=== PATIENT | female | born 1935 | race Caucasian/White ===

== ENCOUNTER 2024-01-08 22:50 | Inpatient (IN) | payer MEDICARE, OTHER, SELFPAY ==
[2024-01-08 20:15] VITALS: BP 217/96; BMI 29.7
[2024-01-08 20:19] VITALS: BP 217/96
--- NOTE | 2024-01-08 20:23 | ED.MUSCINJ ---
HPI-Injury
General
Chief Complaint: Fall
Source: patient
Exam Limitations: none
Time Seen by Provider: 01/08/24 20:23
Nursing documentation reviewed up to this point in time: agreed with
History of Present Illness-Injury
Initial Injury comments:
88-year-old female w h/o HTN, HLD, who lives alone at home states she has a bad right knee and goes to a chiropractor for her right hip chronic pain states she was walking in her hallway about 2 hours ago when her right knee gave out she fell
injuring her right hip. She crawled to her iPad and FaceTime to her daughter who called EMS. She denies hitting her head or any other injury. Not anticoagulated. Pain right hip and right knee.
Past History
Past History
ED Past Surgical History: Gynecological, Tonsilectomy and Other (hernia repair)
Social History
Tobacco: Non-smoker
Alcohol: None
Living: alone
Review of Systems
Review of Systems
Allergies reviewed?: Yes
All Other Systems: ROS reviewed and negative except as documented in HPI and ROS
Constitutional: Denies fever
Respiratory: Denies trouble breathing
Cardiac: Denies chest pain, palpitations or syncope
ABD/GI: Denies abdominal pain, nausea or vomiting
: Reports no symptoms
Musculoskeletal: Reports other (pain right hip and right knee pain); Denies neck pain or back pain
Skin: Reports no symptoms
Neurological: Reports no symptoms
Phy Exam
Physical Exam
Physical Exam:
GENERAL: No acute distress. A&Ox3.
CONSTITUTIONAL: Afebrile.
EYES: PERRL, conjunctivae normal
Neck: Supple
ENMT: moist mucus membranes, Pharynx nl
RESPIRATORY: Regular respirations, nonlabored, lungs clear.
CARDIOVASCULAR: Regular rate and rhythm, no murmurs, no rubs.
GI: Soft, nontender, normal BS
MUSCULOSKELETAL: Pt with pain right hip, right leg shortened and knee externally rotated. Well perfused. No edema
SKIN: Warm, dry, pink
PSYCH: Normal mood and affect. Well kept, interactive and appropriate
NEUROLOGIC: Awake, alert and oriented. No focal neurological deficits
Injury Course
Orders/Labs/Results
Orders:
Orders
01/08/24 20:23
Hip, Right 2-3 Views [CR Hip - RT w/wo Pel 2-3 Vw*] Urgent
Comment:
Reason For Exam: Pain after fall
Include a pelvis x-ray?: Yes
01/08/24 20:29
HYDROmorphone [Dilaudid] 0.5 mg IV NOW STA
01/08/24 20:31
Complete Blood Count/With Diff Urgent
Comprehensive Metabolic Panel Urgent
Protime/PTT Urgent
01/08/24 20:34
CR Knee- Right 4 Or More View* Urgent
Comment:
Reason For Exam: knee pain
01/08/24 21:25
HYDROmorphone [Dilaudid] 0.5 mg .ROUTE .STK-MED ONE
01/08/24 21:26
HYDROmorphone [Dilaudid] 0.5 mg IV NOW STA
01/08/24 22:31
Admit/Transfer Patient As Directed
Co-Sign Provider:
Level of Care: Inpatient admission
Assign to:: Medical/Surgical
Physician / Group: hospitalist
Diagnosis: hip fracture
Reason for Hospitalization: ambulatory dysfunction
Expected length of stay greater than two midnights?: Yes
ELOS- Estimated Length of Stay in days: 2
I certify the patient meets the requirements for IP care: Yes
PRN Pain Medication Management As Directed
May give lesser potent ordered pain med per pt: Yes
preference::
Protocol:: Medication orders for pain may be administered in a
manner that supports deferring to patient preference
when the pt is:
- Requesting an ordered lesser potent pain medication.
Least to most potent pain medications are defined
as: acetaminophen < NSAID < tramadol < opioids
(morphine, oxycodone, hydromorphone).
- Requesting a lesser dose of the same medication IF
ORDERED.
- Requesting a less intrusive route of administration
if both routes are prescribed by the provider (PO <
IV).
01/08/24 22:32
Code Status As Directed
Resuscitation Status: Do not resuscitate
Reached after discussion with pt or family/Healthcare POA: Yes
DNR Bracelet Application ONCE
01/08/24 23:52
Amlodipine [Norvasc] 2.5 mg PO NOW STA
Docusate Sodium [Colace] 100 mg PO BID
HYDROmorphone [Dilaudid] 0.5 mg IV Q3HPRN PRN
Magnesium Hydroxide [Milk of Magnesia] 30 ml PO DAILYPRN PRN
Saline Mist 20 drops NASAL DAILYPRN PRN
Sennosides [Senokot] 17.2 mg PO BID
Tamsulosin [Flomax] 0.4 mg PO DAILYPRN PRN
naphazo HCl-hpm-ps 80-Zn sulf [Clear Eyes Complete] 1 drop BOTH EYES QIDPRN PRN
01/08/24 23:52
ORTHOPEDIC CONSULT Routine
Consulting Provider: Javier Bose
Was physician already notified: Yes
Reason for consult: right femoral neck hip fracture
Activity As Directed
Activity Level: With Assistance
Bladder Scan As Directed
Follow Bladder Retention/Intermittent Cath Algorithm?: Yes
PRN if no void in __ hours: 6
Comment: if not voiding 6 hrs upon arrival to floor, bladder scan & follow algorithm
Intake/ Output As Directed
Frequency: Per unit guidelines
Straight Cath As Directed
Frequency: Per Retention Algorithm
Additional Instructions: straight cath as needed per acute urinary retention algorithm for 24 hrs
Additional Instructions: for bladder scan greater than 400 mL
Vital Signs As Directed
Frequency: Per unit guidelines
DX Deep Vein Thrombosis Video Routine
01/09/24 00:00
Acetaminophen [Tylenol] 650 mg PO Q4HWA
01/09/24 08:00
Amlodipine [Norvasc] 5 mg PO DAILY
01/09/24 18:00
Enoxaparin Sodium [Lovenox] 40 mg SC QPM
Abnormal Lab Results
01/08/24
20:31
WBC 12.4 H 10^3/uL
(4.8-10.8)
MPV 10.7 H fL
(7.4-10.4)
Abs Immat Gran (auto) 0.1 H 10^3/uL
(0-0.05)
Absolute Neuts (auto) 10.6 H 10^3/uL
(1.4-6.5)
Absolute Lymphs (auto) 1.1 L 10^3/uL
(1.2-3.4)
Immature Gran % 0.6 H %
(0-0.5)
Neutrophils % 85.7 H %
(42.2-75.2)
Lymphocytes % 8.5 L %
(20.5-51.1)
BUN 23 H mg/dl
(7-17)
Glucose 126 H mg/dl
(70-99)
01/08/24 20:31
01/08/24 20:31
MDM/Problems Addressed
Differential Diagnosis Includes:
Fracture right hip
MDM/Problems Addressed:
88-year-old female who lives alone at home states she has a bad right knee and goes to a chiropractor for her right hip chronic pain states she was walking in her hallway about 2 hours ago when her right knee gave out she fell injuring her right
hip. She crawled to her iPad and FaceTime to her daughter who called EMS. She denies hitting her head or any other injury. Not anticoagulated.
Daughter at bedside with list of allergies, does not know what allergy to Codeine was.
Will give low Dose of Dilaudid as she has obviously fx of right hip and needs pain med prior to xray
Clearly a mechanical fall.
9:00 p.m.
CBC WBC 12.4 (reactive)
CMP: unremarkable.
U/A unremarkable
Hospitalist notified of admission
*Critical Care Note
Total Time (30-74mins, 75-104mins- exclusive of procedures): Not Applicable
ED Attending Note
-
Portions of this chart may have been created with voice recognition software.� Occasional wrong word or��sound alike� substitutions may have occurred due to the inherent limitations of voice recognition software.
Discharge Plan
Departure
Patient Disposition: Admit
Date of Disposition: 01/08/24
Time of Disposition: 21:15
Admit to: Med/Surg
Presentation/result/management discussed w/ accepting MD/DO: Hospitalist
Condition: Fair
Discharge Problem:
Fall from slip, trip, or stumble, Fracture of right hip
Interventions
Interventions:
*Risk Screen - Suicide Last Done: 01/08/24 20:23
*General Assessment Last Done: 01/08/24 20:23
*Neglect/Abuse Screening Last Done: 01/08/24 20:23
ED- Fall Risk Assessment Last Done: 01/08/24 23:14
*ED COVID-19 Vaccine History Last Done: 01/08/24 20:23
*Nursing Disposition Last Done: 01/08/24 23:14
ED-Musculoskeletal Assessment Last Done: 01/08/24 20:30
ED- Neurological Assessment Last Done: 01/08/24 20:30
ED-Skin Assessment Last Done: 01/08/24 20:30
Discharge Date and Time
Discharge Date/Time: 01/08/24 23:15
[2024-01-08] MEDS: DILAUDID 0.5 MG IV ×2 (20:35→21:26)
[2024-01-08 20:38] LABS: % Basophils 0.3 % (0-2); % Eosinophils 0.6 % (0-6); % Immature Granulocytes 0.6 % (0-0.5); % Lymphocytes 8.5 % (20.5-51.1); % Monocytes 4.3 % (1.7-9.3); % Neutrophils 85.7 % (42.2-75.2); Absolute Eosinophils 0.1 10^3/uL (0-0.7); Absolute Immature Granulocytes 0.1 10^3/uL (0-0.05); Absolute Lymphocytes 1.1 10^3/uL (1.2-3.4); Absolute Monocytes 0.5 10^3/uL (0.1-0.6); Absolute Neutrophils 10.6 10^3/uL (1.4-6.5); Hematocrit 39.2 % (37.0-47.0); Hemoglobin 13.2 g/dL (12.0-16.0); Mean Corp Hgb Conc. 33.7 g/dL (33.0-37.0); Mean Corpuscular Hgb 29.7 pg (27.0-31.0); Mean Corpuscular Volume 88.1 fL (81.0-99.0); Mean Platelet Volume 10.7 fL (7.4-10.4); Nucleated Red Blood Cells % 0 %; Platelet Count 251 10^3/uL (130-400); Red Blood Cell Count 4.45 10^6/uL (4.20-5.40); Red Cell Dist. Width 13.8 % (11.5-14.5); White Blood Cell Count 12.4 10^3/uL (4.8-10.8)
[2024-01-08 20:49] LABS: INR 0.92; PT 12.9 Sec (11.4-14.6)
[2024-01-08 20:50] LABS: APTT 27.8 Sec (23.4-35.0)
[2024-01-08 20:58] LABS: ALT (SGPT) 22 U/L (0-35); AST (SGOT) 31 U/L (14-36); Albumin 4.7 g/dl (3.5-5.0); Alkaline Phosphatase 74 U/L (38-126); Blood Urea Nitrogen 23 mg/dl (7-17); Calcium 10.1 mg/dl (8.4-10.2); Carbon Dioxide 28 mmol/L (22-30); Chloride 102 mmol/L (98-107); Estimated Creatinine Clearance 39 ml/min; Glucose 126 mg/dl (70-99); Potassium 3.9 mmol/L (3.5-5.1); Sodium 141 mmol/L (135-145); Total Bilirubin 0.7 mg/dl (0.2-1.3); eGFR > 60.00
--- NOTE | 2024-01-08 22:02 | HPS.HSE ---
Family Physician
-
Family Physician: Eneida Stallings
Chief Complaint
-
Fall and hip fracture
History of Present Illness
88-year-old female w h/o HTN, HLD, who lives alone and had a fall earlier today with development of right hip pain and ambulatory dysfunction immediately afterwards.
Patient generally healthy and was in usual state of health up until event today. She was walking across the room to go to the living room when she felt her knee give way (chronic arthritis) and she collapsed to the floor. She denied hitting her
head. Denies having any neck pain. There was no associated lightheadedness dizziness or loss of consciousness. She was not able to stand but then crawled to make a phone call to her daughter. Daughter and family members arrived at the house and
then called EMS.
At home states she has a bad right knee and goes to a chiropractor for her right hip chronic pain.
She has known history of hypertension. She is currently off of antihypertensive medications. Patient was previously on hydrochlorothiazide and stated that she had 'charley horses' and was transition to another medication. This medication called
some degree of confusion and uneasiness so she decided to self discontinue. She has not been on antihypertensives for several weeks now.
In the emergency department she was afebrile blood pressure was 200/90. Oxygen saturation was 100% on room air. CBC was unremarkable. Electrolytes BUN/creatinine were also within normal limits. X-ray of the hip shows a right-sided acute
nondisplaced subcapital fracture of the femoral neck.
Medical History
Past Medical History
Past Medical History: Reports HTN and Hypercholesterolemia
Past Surgical History: Reports Gynocological and Tonsilectomy
Additional Past Surgical History:
Hernia repair
Social History
Tobacco: Non-smoker
Alcohol: None
Drug: None
Personal: Single
Living: Alone
Employment: Retired
Family History
Family History: Not pertinent
Allergies / Home Medications
Allergies reflects when Allergies were last updated in [facility].
Home Medications with original date entered in [facility]
Allergy/Medication List:
Allergies
Allergy/AdvReac Type Severity Reaction Status Date / Time
cefazolin [From Ancef] Allergy Unknown Verified 01/08/24 20:27
cephalexin [From Keflex] Allergy Unknown Verified 01/08/24 20:27
codeine Allergy Unknown Verified 01/08/24 20:27
lisinopril Allergy Unknown Verified 01/08/24 20:27
meperidine [From Demerol] Allergy Unknown Verified 01/08/24 20:27
Penicillins Allergy Unknown Verified 01/08/24 20:27
Tetanus Vaccines and Toxoid Allergy Unknown Verified 01/08/24 20:27
Tetracyclines Allergy Unknown Verified 01/08/24 20:27
Home Medications
cranberry fruit 450 mg tablet (cranberry) 450 mg PO DAILYPRN PRN supplement 01/08/24
diphenhydramine 25 mg-acetaminophen 500 mg tablet (Tylenol PM Extra Strength) 1 tab PO HS 01/08/24
magnesium carb,citrate,oxide (Magnesium Complex) 300 mg PO DAILYPRN PRN supplement 01/08/24
naphazo HCl 0.025 %-hyprome 0.2 %-ps 80 0.5 %-Zn sulf 0.25 % eye drops (Clear Eyes Complete) 1 drp BOTH EYES QIDPRN PRN itchy eyes 01/08/24
sodium chloride 0.65 % nasal spray aerosol (Saline Mist) 2 spray intranasal DAILYPRN PRN congestion 01/08/24
turmeric 400 mg capsule 400 mg PO DAILYPRN PRN supplement 01/08/24
Review of Systems
-
History Source: Patient
Constitutional: Reports No Symptoms
EENT: Reports No Symptoms
Respiratory: Reports No Symptoms
Cardiac: Reports No Symptoms
Abdomen/GI: Reports No Symptoms
: Reports No Symptoms
Musculoskeletal: Reports Joint Pain
Skin: Reports No Symptoms
Neurological: Reports No Symptoms
Endocrine: Reports No Symptoms
Hematologic/Lymphatic: Reports No Symptoms
Psych: Reports No Symptoms
Physical Exam
Vital Signs
Vital Signs
Temp Pulse Resp BP Pulse Ox
98.2 F 112 25 217/96 94
01/08/24 20:15 01/08/24 20:45 01/08/24 20:45 01/08/24 20:19 01/08/24 20:45
Physical Exam
General: Well Developed, Well Nourished and Pain
HEENT: NormoCephalic, Anicteric, Moist mucous membranes and Atraumatic
Respiratory: Clear
Cardiac: S1/S2 and Regular Rhythm
Breast: Deferred by me
GI: Soft, Non Tender, Non Distended and Normal Bowel Sounds
Rectal: Deferred by Provider
Genito-urinary: Deferred by me
Musculoskeletal: No Clubbing, No Cyanosis, No Edema and Other (no limb assymmetry. Distal pulses intact bilaterally )
Skin: Warm
Neuro: AO x 3
Hematologic/Lymphatic: No Lymphadenopathy
Psych: Calm
Laboratory Results
-
01/08/24 20:31
01/08/24 20:31
Laboratory Results
PT 12.9 Sec (11.4-14.6) 01/08/24 20:31
INR 0.92 01/08/24 20:31
APTT 27.8 Sec (23.4-35.0) 01/08/24 20:31
Total Bilirubin 0.7 mg/dl (0.2-1.3) 01/08/24 20:31
AST 31 U/L (14-36) 01/08/24 20:31
ALT 22 U/L (0-35) 01/08/24 20:31
Alkaline Phosphatase 74 U/L (38-126) 01/08/24 20:31
Data Reviewed
-
Diagnostic Radiology: Report Reviewed by me
Lab Data: Labs Reviewed by me
Old Records: Reviewed
Impression/Plan
-
IMPRESSION:
88 y.o with hypertension coming in with fall and a right non-displaced femoral neck fracture.
PLAN:
1. Hip Fracture
- admit to med/surg
- pain control and antiemetics
- no weight bearing tonight
- consulted orthopedic (Dr. Bose), CT hip and npo recommended. They'll follow up in am.
- PTOT eval
2. HTN - Self d/c'd lisinopril due to 'reaction.' It appears she had episode of confusion with the med. 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 Quite hypetensive here.
- will start norvasc 5 mg for now
DVT PPX - lovenox sq
[2024-01-08 23:00] VITALS: BP 189/145
[2024-01-08 23:50] VITALS: BP 193/104
--- NOTE | 2024-01-08 23:50 | PTCARENOTE ---
Pt arrived to [facility] from ED and was a pullover assist x4 from stretcher to bed. Pt is AAOx3 and reports 10/10 pain to right hip. Static overlay in place, Purewick placed d/t inability to turn to use bedpan. Pt oriented to room, call richardson within
reach. Pt and daughter updated on plan of care. BP on admission 193/104, HR 110. Will provide scheduled dose of Norvasc 2.5mg and PRN IV Dilaudid 0.5mg for severe pain.
[2024-01-08 23:55] VITALS: BMI 28.8
[2024-01-09] VITALS (7 sets, daily range): BP systolic 159–199; BP diastolic 84–107
[2024-01-09] MEDS: DILAUDID 0.5 MG IV ×6 (00:45→23:53)
--- NOTE | 2024-01-09 01:00 | PTCARENOTE ---
Addendum entered by Abelino Kang RN 01/09/24 05:50:
Pt refused to receive 1x IV Zofran 4mg.
Original Note:
Pt vomited a small amount of brown liquid emesis. Pt reports that she did not feel nauseous and it 'came on all of a sudden'. GLADYS Resendiz notified and 1x IV Zofran 4mg ordered for pt.
[2024-01-09] MEDS: NORVASC 2.5 MG PO (01:38)
--- NOTE | 2024-01-09 07:39 | W.PN.HOSP.TC ---
Today's Communication/Plan
-
blood pressure control
antiemetic prn
pain control
bedrest
npo after midnight for ORIF, risk of surgical intervention not prohibitive
Assessment / Plan
Assessment / Plan
Physical Exam
General: Well Developed, Well Nourished and Pain
HEENT: NormoCephalic, Anicteric, Moist mucous membranes and Atraumatic
Respiratory: Clear
Cardiac: S1/S2 and Regular Rhythm
GI: Soft, Non Tender, Non Distended and Normal Bowel Sounds
Genito-urinary: Deferred by me
Musculoskeletal: No Clubbing, No Cyanosis, No Edema. RLE slightly shorter compared to Left
Skin: Warm
Neuro: AO x 3
Psych: Calm
88 y.o with hypertension coming in with fall and a right non-displaced femoral neck fracture.
PLAN:
# Hip Fracture
- admit to med/surg
- pain control and antiemetics
- no weight bearing/bedrest
- CT pelvis appreciated Acute subcapital fracture of the right femur associated with 7 mm impaction and 13 mm anterior displacement of the distal fracture fragment
- consult orthopedic appreciated NPO after midnight for ORIF
-Risk of surgical intervention not prohibitive
# HTN - Self d/c'd lisinopril due to 'reaction.' It appears she had episode of confusion with the med. 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
#Hypertensive Urgency
- started norvasc 5 mg, cont
-labetalol PRN
#Patient Nauseous w/ hypertensive urgency following Fall
CT head appreciated no acute abn's
urinalysis not suggestive of UTI
DVT PPX - SCD
Discussed with patient, patient's daughter Song, Orthopedic, and nurse
I spent a total of 50 minutes with the patient or on the floor. More than 50% of this time involved counseling and coordination of care.
Anticipated Discharge: 24 - 48 hours
Subjective/Interval History
-
Date of Service: January 09, 2024
Seen and examined at bedside in no acute distress resting comfortably in bed. Nauseous recently received compazine. Reports pain well controlled at this time. Daughter Song present during evaluation.
Objective Data
-
Labs:
Laboratory Results
01/08/24
20:31
WBC 12.4 H
Hgb 13.2
Hct 39.2
Plt Count 251
PT 12.9
INR 0.92
APTT 27.8
Sodium 141
Potassium 3.9
Chloride 102
Carbon Dioxide 28
BUN 23 H
Creatinine 0.9
Glucose 126 H
Calcium 10.1
Total Bilirubin 0.7
AST 31
ALT 22
Alkaline Phosphatase 74
Vital Signs:
Vital Signs
Temp Pulse Resp BP Pulse Ox
98.0 F 103 18 188/99 92
01/08/24 23:50 01/09/24 01:38 01/08/24 23:50 01/09/24 01:38 01/09/24 01:00
I&O
01/08/24 01/09/24 01/10/24
06:59 06:59 06:59
Intake Total 60 / 60
Output Total 550 / 550
Balance -490 / -490
--- NOTE | 2024-01-09 08:12 | W.PN.UPDATE ---
Update Note
Progress Note Update
Patient seen at bedside this morning and examined.
Had long discussion about injury and treatment options.
Patient with displaced right femora neck fracture and plan for right hip della arthroplasty.
Timing of surgery pending. Please keep NPO for now until definitive timing is determined.
Formal consult to follow
[2024-01-09] MEDS: NORVASC 5 MG PO (09:00)
[2024-01-09] MEDS: COMPAZINE 5 MG IV ×2 (11:28→19:49)
[2024-01-09] MEDS: LR 1000 IV ×2 (11:29→22:02)
--- NOTE | 2024-01-09 11:35 | CM ---
Patient seen bedside with daughter, initial assessment completed. Prior to hospital, patient independent with ADLS, drives, no device used. Patient lives alone in a multiple story home, two steps to enter, bedroom on main level. Patient denies
VN/SNF history. Patient confirms PCP Eneida Stallings, pharmacy [facility], confirms prescription coverage. Patient denies insecurities at home. Patient will need new PT/OT orders after surgery. CM will continue to follow for all discharge
planning needs.
Plan; watch for PT/OT evals for level of care recommendations after surgery.
--- NOTE | 2024-01-09 12:04 | CON.ORTHO ---
Consultation - Orthopedics
History
HPI: 88 yo F presented to ED s/p mechanical fall at home with complaints of right hip pain. She was subsequently diagnosed with a right displaced femoral neck fracture and admitted to the hospital with orthopedic consult. This morning patient
reports significant pain right groin made worse with motion and ambulation, improves at rest. She does live alone independently. She does not use any assistive devices. Her daughter is at bedside. She is nervous as she has had some poor reactions to
anesthesia in the past as well as pain medications.
Allergies / Home Medications
PMH: HTN, HLD
PSH: Remote knee surgery
Family HX: not pertinent
Social HX: non smoker, lives at home alone
Allergy/AdvReac Type Severity Reaction Status Date / Time
cefazolin [From Ancef] Allergy Unknown Verified 01/08/24 20:27
cephalexin [From Keflex] Allergy Unknown Verified 01/08/24 20:27
codeine Allergy Unknown Verified 01/08/24 20:27
lisinopril Allergy Unknown Verified 01/08/24 20:27
meperidine [From Demerol] Allergy Unknown Verified 01/08/24 20:27
Penicillins Allergy Unknown Verified 01/08/24 20:27
Tetanus Vaccines and Toxoid Allergy Unknown Verified 01/08/24 20:27
Tetracyclines Allergy Unknown Verified 01/08/24 20:27
�Medication �Instructions �Recorded
cranberry fruit 450 mg tablet 450 mg PO DAILYPRN PRN supplement 01/08/24
(cranberry)
diphenhydramine 25 1 tab PO HS 01/08/24
mg-acetaminophen 500 mg tablet
(Tylenol PM Extra Strength)
magnesium carb,citrate,oxide 300 mg PO DAILYPRN PRN supplement 01/08/24
(Magnesium Complex)
naphazo HCl 0.025 %-hyprome 0.2 1 drp BOTH EYES QIDPRN PRN itchy 01/08/24
%-ps 80 0.5 %-Zn sulf 0.25 % eye eyes
drops (Clear Eyes Complete)
sodium chloride 0.65 % nasal spray 2 spray intranasal DAILYPRN PRN 01/08/24
aerosol (Saline Mist) congestion
turmeric 400 mg capsule 400 mg PO DAILYPRN PRN supplement 01/08/24
Vital Signs / Lab Results
Temp Pulse Resp BP Pulse Ox
97.6 F 96 18 159/106 94
01/09/24 07:30 01/09/24 10:59 01/09/24 07:30 01/09/24 10:59 01/09/24 07:30
01/08/24 20:31
01/08/24 20:31
ROS: 10 pt ROS negative unless otherwsie stated
EXAM
Gen: comfortable at rest
MSK RLE:
Skin intact, moderate swelling thigh
short and externally rotated
no ipsilateral knee effusion
TTP over groin and lateral troch flare
No other areas of TTP or crepitus long bones or joints
Xray and CT scan hip reveal displaced right femoral neck fracture
Assessment / Plan
88 yo F community ambulator s/p fall with right fem neck fracture
Had a long discussion with patient regarding diagnosis and treatment options. We discussed both surgical and non surgical treatment. We discussed both arthroplasty and fixation options. My recommendation is to proceed with right hip
hemiarthroplasty. We discussed risks, benefits and alternatives. After discussion, verbal consent was obtained. Will plan to obtain written consent prior to surgery.
NWB RLE
DVT ppx: please hold in preparation for OR
Pain control
NPO at midnight
Medical management per primary team
Plan: to OR tomorrow for right hip hemiarthroplasty with Dr. Alberts
[2024-01-09] MEDS: TYLENOL ORAL SOLUTION PO ×2 (13:25→20:00)
[2024-01-09] MEDS: TYLENOL ORAL SOLUTION 650 MG PO (15:22)
[2024-01-09 16:48] LABS: Urine Albumin Trace (Neg - Trace); Urine Bilirubin Negative (Negative); Urine Character Clear (Clear); Urine Color Yellow; Urine Glucose Negative (Negative); Urine Ketone Negative (Negative); Urine Leukocyte Negative (Negative); Urine Nitrite Negative (Negative); Urine Occult Blood 1+ (Negative); Urine Urobilinogen Negative (Neg - 1+)
[2024-01-09 16:58] LABS: Urine Bacteria Many (Negative); Urine Squamous Cell 0-2 /LPF (Few); Urine White Cell 0-2 /HPF (0-5)
[2024-01-09] MEDS: LOVENOX 40 MG SC (17:25)
[2024-01-09] MEDS: TRANDATE 10 MG IV (22:08)
[2024-01-10] VITALS (17 sets, daily range): BP systolic 109–200; BP diastolic 52–112
[2024-01-10] MEDS: TYLENOL ORAL SOLUTION PO ×3 (01:00→22:36)
--- NOTE | 2024-01-10 01:00 | PTCARENOTE ---
Pt's BP at 2200 was 193/86, HR 86. PRN IV Labetalol 10mg provided to pt. BP at 2330 was 192/87, HR 85. Pt provided IV Dilaudid 0.5mg for 10/10 pain to right hip. BP checked again at 0100 was 173/99, HR 91. GLADYS Kevin notified of BP level
despite PRN Labetalol and Dilaudid. 1x order for IV Labetalol 10mg provided to pt. Repeat BP at 0300 was 156/100, HR 88. GLADYS Kevin notified of decrease in blood pressure after stat Labetalol. No further orders, will continue with current care
plan.
[2024-01-10] MEDS: TRANDATE 10 MG IV (01:25)
[2024-01-10] MEDS: COMPAZINE 5 MG IV (03:23)
[2024-01-10] MEDS: DILAUDID 0.5 MG IV ×4 (03:23→15:36)
[2024-01-10 07:09] LABS: Hematocrit 37.6 % (37.0-47.0); Hemoglobin 12.7 g/dL (12.0-16.0); Mean Corp Hgb Conc. 33.8 g/dL (33.0-37.0); Mean Corpuscular Hgb 29.9 pg (27.0-31.0); Mean Corpuscular Volume 88.5 fL (81.0-99.0); Mean Platelet Volume 10.7 fL (7.4-10.4); Platelet Count 210 10^3/uL (130-400); Red Blood Cell Count 4.25 10^6/uL (4.20-5.40); White Blood Cell Count 8.5 10^3/uL (4.8-10.8)
[2024-01-10 07:49] LABS: Blood Urea Nitrogen 16 mg/dl (7-17); Carbon Dioxide 27 mmol/L (22-30); Chloride 99 mmol/L (98-107); Estimated Creatinine Clearance 49 ml/min; Glucose 113 mg/dl (70-99); Potassium 3.6 mmol/L (3.5-5.1); Sodium 137 mmol/L (135-145); eGFR > 60.00
--- NOTE | 2024-01-10 07:50 | W.PN.UPDATE ---
Update Note
Progress Note Update
With R hip fx
For OR later today
GGMD
[2024-01-10] MEDS: LR 1000 IV ×2 (07:53→17:14)
--- NOTE | 2024-01-10 08:23 | CON.CAR ---
Consultation
Consultation Request
Date/Time Consultation Requested: Jan 10, 2024 0800
Date/Time Consultation Performed: Jan 09 845
Requesting Provider: Hospitalist/Ortho
Performing Provider: Dalton Sanchez
Reason for Consultation: preop hip
Medical History
-
Chief Complaint: fall
History of Present Illness:
88-year-old female with past medical history of hypertension, hyperlipidemia, who presents after a fall and found to have a right hip fracture. She tells me she was walking across the room when she stumbled over her feet, possibly her knee also
giving way, and then collapsed on the floor. She never passed out or had any form of loss of consciousness. She was unable to get up and crawled over to phone her daughter. EMS was then called and took her to the hospital. She was found to have
a right hip fracture. She is planned for the OR later today. She was previously on hypertensive medication and had cramping with HCTZ and lisinopril made her feel funny.
I discussed with her given that she was independent able to walk flights of stairs that she was likely a mildly elevated risk for surgery, however, needs no further testing prior to. Additionally, I will start carvedilol 6.25 mg twice daily for
better blood pressure control.
Past Medical History
Past Medical History: Other (HTN HLD )
Past Surgical History: Gynecological and Tonsilectomy
Social History
Tobacco: Non-Smoker
Alcohol: None
Drug: None
Personal: Single
Living: Alone
Employment: Retired
Family History
Family History: Reviewed & Not Pertinent
Allergies / Home Medications
Allergy/AdvReac Type Severity Reaction Status Date / Time
cefazolin [From Ancef] Allergy Unknown Verified 01/08/24 20:27
cephalexin [From Keflex] Allergy Unknown Verified 01/08/24 20:27
codeine Allergy Unknown Verified 01/08/24 20:27
lisinopril Allergy Unknown Verified 01/08/24 20:27
meperidine [From Demerol] Allergy Unknown Verified 01/08/24 20:27
Penicillins Allergy Unknown Verified 01/08/24 20:27
Tetanus Vaccines and Toxoid Allergy Unknown Verified 01/08/24 20:27
Tetracyclines Allergy Unknown Verified 01/08/24 20:27
�Medication �Instructions �Recorded �Confirmed �Type
cranberry fruit 450 mg tablet 450 mg PO DAILYPRN PRN supplement 01/08/24 01/08/24 History
(cranberry)
diphenhydramine 25 1 tab PO HS 01/08/24 01/08/24 History
mg-acetaminophen 500 mg tablet
(Tylenol PM Extra Strength)
magnesium carb,citrate,oxide 300 mg PO DAILYPRN PRN supplement 01/08/24 01/08/24 History
(Magnesium Complex)
naphazo HCl 0.025 %-hyprome 0.2 1 drp BOTH EYES QIDPRN PRN itchy 01/08/24 01/08/24 History
%-ps 80 0.5 %-Zn sulf 0.25 % eye eyes
drops (Clear Eyes Complete)
sodium chloride 0.65 % nasal spray 2 spray intranasal DAILYPRN PRN 01/08/24 01/08/24 History
aerosol (Saline Mist) congestion
turmeric 400 mg capsule 400 mg PO DAILYPRN PRN supplement 01/08/24 01/08/24 History
Review of Systems
-
All other systems: Negative unless noted
Physical Exam
Vital Signs
Temp Pulse Resp BP Pulse Ox
98.4 F 90 18 186/87 94
01/10/24 07:00 01/10/24 07:00 01/10/24 07:00 01/10/24 07:00 01/10/24 07:00
Lab Results
01/10/24 06:36
01/10/24 06:36
Physical Exam
General: Well Developed and Well Nourished
HEENT: Normocephalic
Respiratory: Clear and Non Labored Respirations
Cardiac: S1/S2 and Regular Rhythm
GI: Soft
Musculoskeletal: No Cyanosis and No Edema
Skin: Warm and Dry
Neuro: AO x 3
Psych: Calm
Impression / Plan
-
A: 88-year-old female with past medical history of hypertension, hyperlipidemia, who presents after a fall and found to have a right hip fracture.
Preop for hip fracture
-In the has no symptoms of ischemia, heart failure, or arrhythmia. According to NSQIP risk calculator she is low risk for this upcoming procedure. She needs no further testing or medications prior to the surgery. She is able to walk a flight of
stairs without any limiting symptoms.
Hypertension
-Start Coreg 6.25 mg twice daily
-Can use hydralazine 10 mg as needed
-If she remains hypertensive can increase Coreg as long as heart rate allows, additionally, would recommend switching amlodipine to nifedipine for better blood pressure control as well
Data Reviewed
-
EKG: Tracing Personally Visualized and interpreted (sr)
Labs: Labs Reviewed by me
--- NOTE | 2024-01-10 08:34 | W.PN.HOSP.TC ---
Today's Communication/Plan
-
NPO for ORIF right hip fx later today
blood pressure control as per Cardio
IVF supplementation while NPO
pain control
Assessment / Plan
Assessment / Plan
Physical Exam
General: Well Developed, Well Nourished and Pain
HEENT: NormoCephalic, Anicteric, Moist mucous membranes and Atraumatic
Respiratory: Clear
Cardiac: S1/S2 and Regular Rhythm
GI: Soft, Non Tender, Non Distended and Normal Bowel Sounds
Musculoskeletal: No Clubbing, No Cyanosis, No Edema. RLE slightly shorter compared to Left
Skin: Warm
Neuro: AO x 3
Psych: Calm
88 y.o with hypertension coming in with fall and a right non-displaced femoral neck fracture.
PLAN:
# Hip Fracture
- admit to med/surg
- pain control and antiemetics
- no weight bearing/bedrest
- CT pelvis appreciated Acute subcapital fracture of the right femur associated with 7 mm impaction and 13 mm anterior displacement of the distal fracture fragment
- consult orthopedic appreciated NPO for ORIF today 01/09
-cont IVF supplementation while NPO
-Risk of surgical intervention not prohibitive
# HTN - Self d/c'd lisinopril due to 'reaction.' It appears she had episode of confusion with the med. 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
#Hypertensive Urgency
- started norvasc 5 mg, cont
-labetalol PRN
-Cardio eval appreciated Coreg started
#Patient Nauseous w/ hypertensive urgency following Fall
CT head appreciated no acute abn's
urinalysis not suggestive of UTI
DVT PPX - SCD
Discussed with patient, patient's daughter Song, Orthopedic, and Stabilizer Operator
I spent a total of 50 minutes with the patient or on the floor. More than 50% of this time involved counseling and coordination of care.
Anticipated Discharge: > 48 hours
Subjective/Interval History
-
Date of Service: January 10, 2024
No acute distress resting comfortably in bed. Pain relatively well controlled with current pain regimen. Daughter Song present during evaluation. Nausea well controlled at this time.
Objective Data
-
Labs:
Laboratory Results
01/10/24
06:36
WBC 8.5
Hgb 12.7
Hct 37.6
Plt Count 210
Sodium 137
Potassium 3.6
Chloride 99
Carbon Dioxide 27
BUN 16
Creatinine 0.7
Glucose 113 H
Calcium 9.0
Vital Signs:
Vital Signs
Temp Pulse Resp BP Pulse Ox
98.4 F 90 18 186/87 94
01/10/24 07:00 01/10/24 07:00 01/10/24 07:00 01/10/24 07:00 01/10/24 07:00
I&O
01/09/24 01/10/24 01/11/24
06:59 06:59 06:59
Intake Total 60 / 60 1597 / 1597
Output Total 550 / 550 150 / 150
Balance -490 / -490 1447 / 1447
[2024-01-10] MEDS: TYLENOL ORAL SOLUTION 650 MG PO ×3 (09:21→15:57)
[2024-01-10] MEDS: NORVASC 5 MG PO (09:32)
[2024-01-10] MEDS: COREG 6.25 MG PO ×2 (11:48→22:54)
--- NOTE | 2024-01-10 11:58 | CM ---
CM reviewed chart, patient for OR today. Patients daughter seen in critical [facility], requesting [facility] upon discharge. CM explained patient will need PT/OT after surgery when able, will need recommendation for acute rehab, PMR consult, daughter
understands. CM will continue to follow for all discharge planning needs.
Plan; for OR today, family hoping for [facility] upon discharge.
--- NOTE | 2024-01-10 17:30 | PTCARENOTE ---
pt going to sx. CHG bath given and sheets changed. Prep completed.
--- NOTE | 2024-01-10 21:40 | PTCARENOTE ---
Pt arrive to [facility] at 2140 from the PACU. Pt on 2L of O2. Full head to toe assessment complete. Pt has a primaseal on the Right hip with scant drainage. Bed locked and in lowest position. Pt oriented to room and call richardson. Care ongoing.
[2024-01-10] MEDS: COLACE 100 MG PO (22:53)
[2024-01-10] MEDS: SENOKOT 17.2 MG PO (22:53)
[2024-01-10] MEDS: NORMOSOL-R/PLASMALYTE-A 1000 IV (22:54)
[2024-01-11] VITALS (12 sets, daily range): BP systolic 83–151; BP diastolic 46–110; O2SAT 89
[2024-01-11] MEDS: TYLENOL ORAL SOLUTION 650 MG PO ×6 (00:16→23:43)
[2024-01-11] MEDS: ROXICODONE 5 MG PO ×3 (01:13→23:43)
[2024-01-11] MEDS: CLEOCIN 50 IV (01:15)
--- NOTE | 2024-01-11 04:00 | PTCARENOTE ---
Addendum entered by Gabriella Conley RN 01/11/24 06:43:
Repeat BP 177/109. HR 91. MANAGER TERMINAL notified.
Original Note:
Pt manual BP 170/96 HR 82. MANAGER TERMINAL notified and ordered Hydralazine 10mg PO.
[2024-01-11] MEDS: LR IV (04:26)
[2024-01-11] MEDS: TYLENOL ORAL SOLUTION PO (04:43)
[2024-01-11] MEDS: LOVENOX 40 MG SC (05:18)
[2024-01-11 06:42] LABS: Hematocrit 34.2 % (37.0-47.0); Hemoglobin 11.5 g/dL (12.0-16.0); Mean Corp Hgb Conc. 33.6 g/dL (33.0-37.0); Mean Corpuscular Hgb 29.9 pg (27.0-31.0); Mean Corpuscular Volume 88.8 fL (81.0-99.0); Mean Platelet Volume 11.2 fL (7.4-10.4); Platelet Count 217 10^3/uL (130-400); Red Blood Cell Count 3.85 10^6/uL (4.20-5.40); Red Cell Dist. Width 13.9 % (11.5-14.5); White Blood Cell Count 7.2 10^3/uL (4.8-10.8)
[2024-01-11 07:10] LABS: Blood Urea Nitrogen 19 mg/dl (7-17); Calcium 8.7 mg/dl (8.4-10.2); Carbon Dioxide 27 mmol/L (22-30); Chloride 99 mmol/L (98-107); Estimated Creatinine Clearance 43 ml/min; Glucose 112 mg/dl (70-99); Magnesium 2.1 mg/dl (1.6-2.3); Phosphorus 3.3 mg/dl (2.5-4.5); Potassium 3.6 mmol/L (3.5-5.1); Sodium 134 mmol/L (135-145); eGFR > 60.00
--- NOTE | 2024-01-11 07:35 | W.PN.HOSP.TC ---
Today's Communication/Plan
-
pain control
blood pressure control
IVF reduced rate
PT/OT
Assessment / Plan
Assessment / Plan
Physical Exam
General: Well Developed, Well Nourished and Pain
HEENT: NormoCephalic, Anicteric, Moist mucous membranes and Atraumatic
Respiratory: Clear
Cardiac: S1/S2 and Regular Rhythm
GI: Soft, Non Tender, Non Distended and Normal Bowel Sounds
Musculoskeletal: No Clubbing, No Cyanosis, No Edema. RLE slightly shorter compared to Left
Skin: Warm
Neuro: AO x 3
Psych: Calm
88 y.o with hypertension coming in with fall and a right non-displaced femoral neck fracture.
PLAN:
# Hip Fracture
- admit to med/surg
- pain control and antiemetics
- no weight bearing/bedrest
- CT pelvis appreciated Acute subcapital fracture of the right femur associated with 7 mm impaction and 13 mm anterior displacement of the distal fracture fragment
- consult orthopedic ORIF completed 01/09
-diet resumed but oral intake low (baseline as per patient) IVF rate reduced
# HTN - Self d/c'd lisinopril due to 'reaction.' It appears she had episode of confusion with the med. 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
#Hypertensive Urgency
- started norvasc 5 mg, cont
-labetalol PRN
-Cardio eval appreciated Coreg started
#Patient Nauseous w/ hypertensive urgency following Fall
CT head appreciated no acute abn's
urinalysis not suggestive of UTI
nausea since resolved, HTN improved
PT/OT appreciated acute rehab
DVT PPX - SCD
Discussed with patient and patient's daughter Song
I spent a total of 45 minutes with the patient or on the floor. More than 50% of this time involved counseling and coordination of care.
Anticipated Discharge: 24 - 48 hours
Subjective/Interval History
-
Date of Service: January 11, 2024
No acute distress. Reports overall feeling well. Not eating much but this is baseline for her per patient and her close friend Lina at bedside.
Objective Data
-
Labs:
Laboratory Results
01/11/24
06:20
WBC 7.2
Hgb 11.5 L
Hct 34.2 L
Plt Count 217
Sodium 134 L
Potassium 3.6
Chloride 99
Carbon Dioxide 27
BUN 19 H
Creatinine 0.8
Glucose 112 H
Calcium 8.7
Vital Signs:
Vital Signs
Temp Pulse Resp BP Pulse Ox
97.9 F 84 18 114/69 94
01/11/24 03:10 01/11/24 03:10 01/11/24 03:10 01/11/24 03:10 01/11/24 03:10
I&O
01/10/24 01/11/24 01/12/24
06:59 06:59 06:59
Intake Total 1597 / 1597 290 / 290
Output Total 150 / 150
Balance 1447 / 1447 290 / 290
--- NOTE | 2024-01-11 08:41 | W.PN.CD ---
Today's Communication / Plan
-
Cont carvedilol and amlodipine
For HTN can uptitrate coreg as long as HR allows
Additionally, could switch from amlodipine to nifedipine with uptiration
We will sign off please call with questions/concerns.
Impression / Plan
-
A: 88-year-old female with past medical history of hypertension, hyperlipidemia, who presents after a fall and found to have a right hip fracture.
Preop for hip fracture
-In the has no symptoms of ischemia, heart failure, or arrhythmia. According to NSQIP risk calculator she is low risk for this upcoming procedure. She needs no further testing or medications prior to the surgery. She is able to walk a flight of
stairs without any limiting symptoms.
Hypertension
-Start Coreg 6.25 mg twice daily
-Can use hydralazine 10 mg as needed
-If she remains hypertensive can increase Coreg as long as heart rate allows, additionally, would recommend switching amlodipine to nifedipine for better blood pressure control as well
Physical Exam
Vital Signs/Labs
Vital Signs
Temp Pulse Resp BP Pulse Ox
99.3 F 85 14 140/55 86
01/11/24 07:38 01/11/24 07:38 01/11/24 07:38 01/11/24 07:38 01/11/24 07:38
01/11/24 06:20
01/11/24 06:20
PT 12.9 Sec (11.4-14.6) 01/08/24 20:31
INR 0.92 01/08/24 20:31
APTT 27.8 Sec (23.4-35.0) 01/08/24 20:31
Magnesium 2.1 mg/dl (1.6-2.3) 01/11/24 06:20
Physical Exam
Constitutional: No acute distress
EENT: Anicteric
Cardiovascular: Rhythm & rate is regular and Pedal edema is absent
Respiratory: Respiratory effort normal and Lungs clear to auscul.
GI: Soft
Neuro/Psych: Alert and Oriented
Data Reviewed
-
Date of Service: January 11, 2024
EKG: Tracing Personally Visualized and interpreted (sr)
Labs: Labs Reviewed by me
[2024-01-11] MEDS: NORVASC 5 MG PO (08:58)
[2024-01-11] MEDS: COREG 6.25 MG PO ×2 (08:58→19:48)
[2024-01-11] MEDS: COLACE 100 MG PO ×2 (08:59→19:47)
[2024-01-11] MEDS: SENOKOT 17.2 MG PO ×2 (08:59→19:48)
--- NOTE | 2024-01-11 09:39 | W.PN.UPDATE ---
Update Note
Progress Note Update
More comfortable this AM
VSS
H/H reviewed
R LE NVI/Dressing intact
Xrays look well
RX;
PT/OT/DC planning
PO iv antibx
DVT prophylaxis with lovenox for 2 weeks followed by aspirin for 3 additional weeks
F/U with me in about 2-3 weeks
thanks
GGMD
[2024-01-11] MEDS: ROXICODONE 10 MG PO (11:25)
--- NOTE | 2024-01-11 11:40 | PTCARENOTE ---
Addendum entered by Kaitlin Green RN 01/12/24 18:28:
Daughter Danyell expressed her apologies for Soledad yesterday and stated we did a great job taking care of her mother and that she has been very happy with her care.
Original Note:
Patient worked with therapy to get into hip chair. BP dropped to 83/66, HR 85 while in chair and complaining of dizziness. Rechecked after 12 minutes and BP was 104/48. Dizziness had resolved. Patient sat in chair for 45 minutes and then requested
to get back into bed. Transferred onto commode because patient had to void and then attempted to transfer into bed with [employer] Analyst Astrid. Patient had complaints of feeling faint and nauseous while standing and was unable to transfer back into bed on
her own. This nurse and Astrid essentially had to lift patient back into bed to prevent her from falling. We moved patient as carefully as possible, but she did complain of pain. We repositioned her in bed and made her comfortable. Daughter, Soledad
was in the room, and was complaining that the aide was 'too rough' with patient while repositioning and that she pressed on her wound while turning. I did witness this, but Soledad continued to comment on it. I explained that typically we would not
assist a patient back to bed in that matter but patient was feeling faint and was not supporting her own weight. BP while back in bed was 133/110, HR 77.
[2024-01-11] MEDS: LR 1000 IV (13:20)
[2024-01-12 03:30] VITALS: BP 146/57
[2024-01-12] MEDS: TYLENOL ORAL SOLUTION PO ×2 (04:21→16:50)
[2024-01-12] MEDS: ROXICODONE 10 MG PO (04:21)
[2024-01-12 05:46] LABS: Hematocrit 32.2 % (37.0-47.0); Hemoglobin 10.8 g/dL (12.0-16.0); Mean Corp Hgb Conc. 33.5 g/dL (33.0-37.0); Mean Corpuscular Hgb 29.4 pg (27.0-31.0); Mean Corpuscular Volume 87.7 fL (81.0-99.0); Mean Platelet Volume 11.3 fL (7.4-10.4); Platelet Count 184 10^3/uL (130-400); Red Blood Cell Count 3.67 10^6/uL (4.20-5.40); Red Cell Dist. Width 13.9 % (11.5-14.5); White Blood Cell Count 6.1 10^3/uL (4.8-10.8)
[2024-01-12 06:22] LABS: Blood Urea Nitrogen 22 mg/dl (7-17); Calcium 8.6 mg/dl (8.4-10.2); Carbon Dioxide 26 mmol/L (22-30); Chloride 98 mmol/L (98-107); Estimated Creatinine Clearance 43 ml/min; Glucose 108 mg/dl (70-99); Magnesium 2.1 mg/dl (1.6-2.3); Phosphorus 3.3 mg/dl (2.5-4.5); Potassium 3.6 mmol/L (3.5-5.1); Sodium 134 mmol/L (135-145); eGFR > 60.00
--- NOTE | 2024-01-12 07:01 | W.PN.HOSP.TC ---
Today's Communication/Plan
-
Discharge Planning Acute Rehab
PT/OT
wound care
blood pressure control
pain control
Assessment / Plan
Assessment / Plan
Physical Exam
General: no acute distress appears comfortable
HEENT: NormoCephalic, Anicteric, Moist mucous membranes and Atraumatic Hard of hearing
Respiratory: Clear
Cardiac: S1/S2 and Regular Rhythm
GI: Soft, Non Tender, Non Distended and Normal Bowel Sounds
Musculoskeletal: No Clubbing, No Cyanosis, No Edema.
Skin: Warm
Neuro: AO x 3
Psych: Calm
88 y.o with hypertension coming in with fall and a right non-displaced femoral neck fracture.
PLAN:
# Hip Fracture
- admit to med/surg
- pain control and antiemetics
- no weight bearing/bedrest
- CT pelvis appreciated Acute subcapital fracture of the right femur associated with 7 mm impaction and 13 mm anterior displacement of the distal fracture fragment
- consult orthopedic ORIF completed 01/09
-diet resumed but oral intake low (baseline as per patient) IVF rate reduced
# HTN - Self d/c'd lisinopril due to 'reaction.' It appears she had episode of confusion with the med. 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
#Hypertensive Urgency
- started norvasc 5 mg, cont
-labetalol PRN
-Cardio eval appreciated Coreg started, cont
#Patient Nauseous w/ hypertensive urgency following Fall
CT head appreciated no acute abn's
urinalysis not suggestive of UTI
nausea since resolved, HTN improved
PT/OT appreciated acute rehab
DVT PPX - SCD
Discussed with patient and patient's daughter Song
I spent a total of 40 minutes with the patient or on the floor. More than 50% of this time involved counseling and coordination of care.
Anticipated Discharge: 24 - 48 hours
Subjective/Interval History
-
Date of Service: January 12, 2024
Seen and examined at bedside in no acute distress sitting up comfortably in bed. Reports pain well controlled with current pain regimen. Denies constipation. Family present during evaluation
Objective Data
-
Labs:
Laboratory Results
01/12/24
04:35
WBC 6.1
Hgb 10.8 L
Hct 32.2 L
Plt Count 184
Sodium 134 L
Potassium 3.6
Chloride 98
Carbon Dioxide 26
BUN 22 H
Creatinine 0.8
Glucose 108 H
Calcium 8.6
Vital Signs:
Vital Signs
Temp Pulse Resp BP Pulse Ox
98.3 F 85 18 146/57 92
01/12/24 03:30 01/12/24 03:30 01/12/24 03:30 01/12/24 03:30 01/12/24 03:30
I&O
01/11/24 01/12/24 01/13/24
06:59 06:59 06:59
Intake Total 290 / 290 2300 / 2300
Balance 290 / 290 2300 / 2300
[2024-01-12 07:25] VITALS: BP 112/71
[2024-01-12] MEDS: COREG 6.25 MG PO ×2 (09:15→20:15)
[2024-01-12] MEDS: TYLENOL ORAL SOLUTION 650 MG PO ×4 (09:15→23:49)
[2024-01-12] MEDS: LOVENOX 40 MG SC (09:16)
[2024-01-12] MEDS: NORVASC 5 MG PO (09:16)
[2024-01-12] MEDS: COLACE 100 MG PO (09:17)
[2024-01-12] MEDS: SENOKOT 17.2 MG PO (09:17)
[2024-01-12] MEDS: ROXICODONE 5 MG PO ×2 (09:22→20:21)
[2024-01-12 09:51] VITALS: BP 164/76; BP 179/76; PULSE 92
[2024-01-12 11:10] VITALS: BP 146/61
[2024-01-12 15:25] VITALS: BP 146/61
[2024-01-12] MEDS: SENOKOT PO (20:15)
[2024-01-12] MEDS: COLACE PO (20:15)
[2024-01-12 23:07] VITALS: BP 123/46
[2024-01-13] MEDS: TYLENOL ORAL SOLUTION 650 MG PO ×5 (04:10→20:19)
[2024-01-13] MEDS: ROXICODONE 5 MG PO ×3 (04:20→20:57)
[2024-01-13 05:44] LABS: Hematocrit 30.4 % (37.0-47.0); Hemoglobin 10.2 g/dL (12.0-16.0); Mean Corp Hgb Conc. 33.6 g/dL (33.0-37.0); Mean Corpuscular Hgb 29.6 pg (27.0-31.0); Mean Corpuscular Volume 88.1 fL (81.0-99.0); Mean Platelet Volume 10.9 fL (7.4-10.4); Platelet Count 195 10^3/uL (130-400); Red Blood Cell Count 3.45 10^6/uL (4.20-5.40); Red Cell Dist. Width 14.2 % (11.5-14.5); White Blood Cell Count 5.8 10^3/uL (4.8-10.8)
[2024-01-13 06:09] LABS: Blood Urea Nitrogen 16 mg/dl (7-17); Calcium 8.7 mg/dl (8.4-10.2); Carbon Dioxide 26 mmol/L (22-30); Chloride 100 mmol/L (98-107); Estimated Creatinine Clearance 49 ml/min; Glucose 122 mg/dl (70-99); Phosphorus 3.2 mg/dl (2.5-4.5); Potassium 3.3 mmol/L (3.5-5.1); Sodium 137 mmol/L (135-145); eGFR > 60.00
[2024-01-13 07:34] VITALS: BP 164/66
--- NOTE | 2024-01-13 09:12 | W.PN.HOSP.TC ---
Today's Communication/Plan
-
Consult physiatry
Discharge to acute rehab when bed available
Assessment / Plan
Assessment / Plan
88 y.o with hypertension coming in with fall and a right non-displaced femoral neck fracture.
PLAN:
# Acute right hip Fracture
-CT pelvis appreciated Acute subcapital fracture of the right femur associated with 7 mm impaction and 13 mm anterior displacement of the distal fracture fragment
-Appreciate orthopedic surgery input, status post ORIF 01/10/2024
-Pain meds, laxatives, PT/OT - rec acute rehab, consult physiatry
-Orthopedic surgery recommends subcu Lovenox for 2 weeks, followed by aspirin for 3 weeks
-Follow-up with orthopedic surgery in the office in 2-3 weeks
#Acute blood loss anemia from surgery
Mild, monitor
# HTN - Self d/c'd lisinopril due to 'reaction.' It appears she had episode of confusion with the med. 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
#Hypertensive Urgency
Appreciate cardiology input, started Norvasc 5 mg daily, and Coreg 6.25 mg twice a day�continue
#Patient Nauseous w/ hypertensive urgency following Fall
CT head appreciated no acute abn's
urinalysis not suggestive of UTI
nausea since resolved, HTN improved
PT/OT appreciated acute rehab
DVT prophylaxis�subcu Lovenox
DNR
Updated daughter at bedside 01/12
Total time spent to see the patient on the floor, examine the patient, review data and lab results, discuss treatment plan with patient, nursing staff around 43 minutes.
Physical Exam
General: No acute distress
HEENT: Normocephalic, Atraumatic, EOMI, MMM
Hearing loss noted
Respiratory: Clear to Auscultation bilaterally
Cardiac: Normal S1/S2, Regular Rate and Rhythm
GI: Soft, Nontender, Nondistended, Normal Bowel Sounds
Musculoskeletal: Right hip incision dressed
Extremities: No Clubbing, Cyanosis
Mild right lower extremity edema noted
Anticipated Discharge: Within 24 hours
Subjective/Interval History
-
Date of Service: January 13, 2024
Patient reports feeling nauseous earlier, also gas. No abdominal pain, no constipation. Her right hip pain is 4 out of 10 at rest, worse with movement. No chest pain, no shortness of breath. No fever, no vomiting.
Objective Data
-
Labs:
Laboratory Results
01/13/24
05:13
WBC 5.8
Hgb 10.2 L
Hct 30.4 L
Plt Count 195
Sodium 137
Potassium 3.3 L
Chloride 100
Carbon Dioxide 26
BUN 16
Creatinine 0.7
Glucose 122 H
Calcium 8.7
Vital Signs:
Vital Signs
Temp Pulse Resp BP Pulse Ox
98.0 F 76 18 164/66 94
01/13/24 07:34 01/13/24 07:34 01/13/24 07:34 01/13/24 07:34 01/13/24 07:34
I&O
01/12/24 01/13/24 01/14/24
06:59 06:59 06:59
Intake Total 2300 / 2300 900 / 900
Balance 2300 / 2300 900 / 900
[2024-01-13] MEDS: LOVENOX 40 MG SC (09:29)
[2024-01-13] MEDS: COLACE 100 MG PO (09:29)
[2024-01-13] MEDS: NORVASC 5 MG PO (09:29)
[2024-01-13] MEDS: COREG 6.25 MG PO ×2 (09:30→20:19)
[2024-01-13] MEDS: SENOKOT 17.2 MG PO (09:30)
--- NOTE | 2024-01-13 10:55 | CM ---
Chart reviewed. Spoke with pt and daughter at bedside
PT recs - acute rehab
Discussed with pt - prefers [facility] - TT sent to [facility] to review chart - will send referral in [facility]
Family's SNF choice would be [facility] per daughter
Plan - anticipate [facility] if accepted
[2024-01-13] MEDS: MAGNESIUM OXIDE 500 MG PO ×2 (12:37→20:18)
[2024-01-13 13:45] VITALS: BP 146/61; PULSE 83; O2SAT 95
[2024-01-13 13:48] VITALS: BP 146/61; PULSE 83; O2SAT 95
[2024-01-13 15:28] VITALS: BP 168/73
[2024-01-13] MEDS: KCL 40 MEQ PO (15:46)
[2024-01-13] MEDS: COLACE PO (20:19)
[2024-01-13] MEDS: SENOKOT PO (20:19)
[2024-01-13 23:30] VITALS: BP 151/69
[2024-01-14] MEDS: TYLENOL ORAL SOLUTION PO ×2 (04:35→20:35)
[2024-01-14] MEDS: ROXICODONE 5 MG PO (04:40)
[2024-01-14 05:44] LABS: Hematocrit 31.6 % (37.0-47.0); Hemoglobin 10.7 g/dL (12.0-16.0); Mean Corp Hgb Conc. 33.9 g/dL (33.0-37.0); Mean Corpuscular Hgb 29.9 pg (27.0-31.0); Mean Corpuscular Volume 88.3 fL (81.0-99.0); Platelet Count 238 10^3/uL (130-400); Red Blood Cell Count 3.58 10^6/uL (4.20-5.40); Red Cell Dist. Width 13.9 % (11.5-14.5); White Blood Cell Count 5.4 10^3/uL (4.8-10.8)
[2024-01-14 05:56] LABS: ALT (SGPT) 28 U/L (0-35); AST (SGOT) 33 U/L (14-36); Albumin 3.2 g/dl (3.5-5.0); Alkaline Phosphatase 69 U/L (38-126); Blood Urea Nitrogen 14 mg/dl (7-17); Calcium 8.8 mg/dl (8.4-10.2); Carbon Dioxide 26 mmol/L (22-30); Chloride 102 mmol/L (98-107); Estimated Creatinine Clearance 49 ml/min; Glucose 111 mg/dl (70-99); Potassium 4.2 mmol/L (3.5-5.1); Sodium 137 mmol/L (135-145); Total Protein 5.4 g/dl (6.3-8.2); eGFR > 60.00
[2024-01-14 07:36] VITALS: BP 172/72
--- NOTE | 2024-01-14 08:53 | W.PN.HOSP.TC ---
Today's Communication/Plan
-
see bold
Assessment / Plan
Assessment / Plan
88 y.o with hypertension coming in with fall and a right non-displaced femoral neck fracture.
PLAN:
# Acute right hip Fracture
-CT pelvis appreciated Acute subcapital fracture of the right femur associated with 7 mm impaction and 13 mm anterior displacement of the distal fracture fragment
-Appreciate orthopedic surgery input, status post ORIF 01/10/2024
-Pain meds, laxatives, PT/OT - rec acute rehab, physiatry consulted
-Orthopedic surgery recommends subcu Lovenox for 2 weeks, followed by aspirin for 3 weeks
-Follow-up with orthopedic surgery in the office in 2-3 weeks
#Acute blood loss anemia from surgery
Mild, monitor
#HTN - Self d/c'd lisinopril due to 'reaction.' It appears she had episode of confusion with the med. 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
#Hypertensive Urgency
Appreciate cardiology input, started Norvasc 5 mg daily, will increase to 10 mg daily 01/13
Also increase Coreg to 12.5 mg twice daily 01/13
#Hypokalemia
Repleted and resolved, magnesium normal
#Patient Nauseous w/ hypertensive urgency following Fall
CT head appreciated no acute abn's
urinalysis not suggestive of UTI
nausea since resolved, HTN improved
PT/OT appreciated acute rehab
DVT prophylaxis�subcu Lovenox
DNR
Updated daughter at bedside 01/12
Total time spent to see the patient on the floor, examine the patient, review data and lab results, discuss treatment plan with patient, nursing staff around 40 minutes.
Physical Exam
General: No acute distress
HEENT: Normocephalic, Atraumatic, EOMI, MMM
Hearing loss noted
Respiratory: Clear to Auscultation bilaterally
Cardiac: Normal S1/S2, Regular Rate and Rhythm
GI: Soft, Nontender, Nondistended, Normal Bowel Sounds
Musculoskeletal: Right hip incision dressed
Extremities: No Clubbing, Cyanosis
Mild right lower extremity edema noted
Anticipated Discharge: Within 24 hours
Subjective/Interval History
-
Date of Service: January 13, 2024
Patient complains of gas. Her hip pain is tolerable at rest, worsens with activity or movement. No chest pain, no shortness of breath. No fever, no vomiting.
Objective Data
-
Labs:
Laboratory Results
01/13/24
05:13
WBC 5.8
Hgb 10.2 L
Hct 30.4 L
Plt Count 195
Sodium 137
Potassium 3.3 L
Chloride 100
Carbon Dioxide 26
BUN 16
Creatinine 0.7
Glucose 122 H
Calcium 8.7
Vital Signs:
Vital Signs
Temp Pulse Resp BP Pulse Ox
98.0 F 76 18 164/66 94
01/13/24 07:34 01/13/24 07:34 01/13/24 07:34 01/13/24 07:34 01/13/24 07:34
I&O
01/12/24 01/13/24 01/14/24
06:59 06:59 06:59
Intake Total 2300 / 2300 900 / 900
Balance 2300 / 2300 900 / 900
[2024-01-14] MEDS: COREG 6.25 MG PO ×2 (08:56→20:34)
[2024-01-14] MEDS: MAGNESIUM OXIDE 500 MG PO ×2 (08:57→20:34)
[2024-01-14] MEDS: LOVENOX 40 MG SC (08:57)
[2024-01-14] MEDS: TYLENOL ORAL SOLUTION 650 MG PO ×4 (08:57→17:01)
[2024-01-14] MEDS: COLACE 100 MG PO (08:58)
[2024-01-14] MEDS: NORVASC 5 MG PO ×2 (08:58→09:08)
[2024-01-14] MEDS: SENOKOT PO ×3 (08:58→20:32)
--- NOTE | 2024-01-14 10:28 | PN.CDI ---
CDI
- -
CDI:
Physician Documentation Request
Admit Date: 01/08/24 22:50
Dear Doctor Do,
Please review the following and provide your response in the progress notes.
Clinical Indicators:
- 01/12 40meq PO Potassium chloride given
- Documented potassium levels:
Laboratory Tests
01/12/24 01/13/24 01/14/24
04:35 05:13 04:47
Potassium 3.6 3.3 L 4.2 D
Please provide a diagnosis for the above lab values that were monitored and treatment rendered:
Hypokalemia
Clinically insignificant abnormal lab value
Other
Use of terms such as suspected, likely, concern for, or probable (associated with a specific diagnosis that is being evaluated, monitored, or treated as if it exists) are acceptable and can be coded in the inpatient setting, when documented at the
time of discharge.
Thank you,
Dar Arrington RN
CDI Specialist
Please use your independent medical judgment in providing your response.
[2024-01-14] MEDS: MAALOX 30 ML PO (10:45)
[2024-01-14 13:15] VITALS: BP 127/42; PULSE 73; O2SAT 96
[2024-01-14 13:20] VITALS: BP 127/42; PULSE 77; O2SAT 96
--- NOTE | 2024-01-14 14:33 | CM ---
Chart reviewed
PM&R consult pending
PT - recs acute rehab
Plan - anticipate acute rehab vs SNF, pending PM&R consult
[2024-01-14 15:37] VITALS: BP 136/59
[2024-01-14] MEDS: COLACE PO (20:32)
[2024-01-14 23:07] VITALS: BP 144/66
[2024-01-15] MEDS: TYLENOL ORAL SOLUTION 650 MG PO ×2 (01:07→08:14)
[2024-01-15] MEDS: TYLENOL ORAL SOLUTION PO (04:56)
[2024-01-15 05:45] LABS: Hematocrit 32.6 % (37.0-47.0); Hemoglobin 10.8 g/dL (12.0-16.0); Mean Corp Hgb Conc. 33.1 g/dL (33.0-37.0); Mean Corpuscular Hgb 29.4 pg (27.0-31.0); Mean Corpuscular Volume 88.8 fL (81.0-99.0); Mean Platelet Volume 10.7 fL (7.4-10.4); Platelet Count 270 10^3/uL (130-400); Red Blood Cell Count 3.67 10^6/uL (4.20-5.40); Red Cell Dist. Width 14.2 % (11.5-14.5)
[2024-01-15 07:30] VITALS: BP 147/66
[2024-01-15] MEDS: NORVASC 10 MG PO (08:14)
[2024-01-15] MEDS: LOVENOX 40 MG SC (08:14)
[2024-01-15] MEDS: MAGNESIUM OXIDE 500 MG PO (08:14)
[2024-01-15] MEDS: SENOKOT PO (08:15)
[2024-01-15] MEDS: COREG 6.25 MG PO (08:15)
[2024-01-15] MEDS: COLACE PO (08:17)
--- NOTE | 2024-01-15 08:34 | W.PN.HOSP.TC ---
Today's Communication/Plan
-
Stable for discharge to acute rehab today
Assessment / Plan
Assessment / Plan
88 y.o with hypertension coming in with fall and a right non-displaced femoral neck fracture.
PLAN:
# Acute right hip Fracture
-CT pelvis appreciated Acute subcapital fracture of the right femur associated with 7 mm impaction and 13 mm anterior displacement of the distal fracture fragment
-Appreciate orthopedic surgery input, status post ORIF 01/10/2024
-Pain meds, laxatives, PT/OT - rec acute rehab, physiatry consulted
-Orthopedic surgery recommends subcu Lovenox for 2 weeks, followed by aspirin for 3 weeks
-Follow-up with orthopedic surgery in the office in 2-3 weeks
-Medically stable for discharge to acute rehab today
#Acute blood loss anemia from surgery
Mild, monitor
#HTN - Self d/c'd lisinopril due to 'reaction.' It appears she had episode of confusion with the med. 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
#Hypertensive Urgency
Appreciate cardiology input, started Norvasc 5 mg daily, increased to 10 mg daily 01/13
Continue Coreg 6.25 mg twice a day
#Hypokalemia
Repleted and resolved, magnesium normal
#Patient Nauseous w/ hypertensive urgency following Fall
CT head appreciated no acute abn's
urinalysis not suggestive of UTI
nausea since resolved, HTN improved
PT/OT appreciated acute rehab
DVT prophylaxis�subcu Lovenox
DNR
Updated daughter at bedside 01/12
Physical Exam
General: No acute distress
HEENT: Normocephalic, Atraumatic, EOMI, MMM
Hearing loss noted
Respiratory: Clear to Auscultation bilaterally
Cardiac: Normal S1/S2, Regular Rate and Rhythm
GI: Soft, Nontender, Nondistended, Normal Bowel Sounds
Musculoskeletal: Right hip incision dressed
Extremities: No Clubbing, Cyanosis
Mild right lower extremity edema noted
Anticipated Discharge: Today
Subjective/Interval History
-
Date of Service: January 15, 2024
Right hip pain tolerable. Denies CP/SOB. C/o diarrhea from Mg oxide. No fever, no vomiting.
Objective Data
-
Labs:
Laboratory Results
01/15/24
04:57
WBC 6.0
Hgb 10.8 L
Hct 32.6 L
Plt Count 270
Vital Signs:
Vital Signs
Temp Pulse Resp BP Pulse Ox
97.7 F 84 18 147/66 97
01/15/24 07:30 01/15/24 07:30 01/15/24 07:30 01/15/24 07:30 01/15/24 07:30
I&O
01/14/24 01/15/24 01/16/24
06:59 06:59 06:59
Intake Total 900 / 900 360 / 360
Balance 900 / 900 360 / 360
--- NOTE | 2024-01-15 11:13 | W.DCSUMMARY ---
Discharge Summary
Discharge Data
Date of Admission: 01/08/24
Date of Discharge: 01/15/24
-
Pending Results: No
Hospital Course
Discharge diagnosis:
Acute right hip fracture
Acute blood loss anemia from surgery
Hypertensive urgency
Hypokalemia
Nausea
Consults: Orthopedic surgery, cardiology
Procedures:
01/10/2024�right hip hemiarthroplasty
Hospital course:
88-year-old female with a past medical history of hypertension who presented with right hip pain status post mechanical fall. Patient was found to have a right hip fracture as well as hypertensive urgency. Patient was seen in conjunction with
cardiology. She was started on amlodipine 5 mg daily as well as Coreg 6.25 mg twice a day. Patient's blood pressure improved. Her amlodipine was increased to 10 mg daily. She can continue these medications upon discharge.
Patient was seen in conjunction with orthopedic surgery for her right hip fracture. She underwent right hip hemiarthroplasty on 01/10/2024. She did well postoperatively.
Patient was seen in conjunction with PT. PT recommends acute rehab. She is medically stable for discharge to acute rehab. She needs to follow-up with orthopedic surgery in the office in 2-3 weeks, and her primary care doctor 1 week after she
leaves rehab. Orthopedic surgery recommends Lovenox 40 mg subcu daily for 2 weeks for DVT prophylaxis, followed by aspirin 325 mg p.o. daily for 3 weeks.
Disposition: Acute rehab
Discharge planning: Required 41-minute
Discharge Plan
-
Patient Disposition: Acute Rehab Facility
Discharge Diagnosis/Procedures: Acute right hip fracture status post surgery, acute blood loss anemia, hypertensive urgency, hypokalemia
Condition: Good
Diet: Regular
Activity: As tolerated
Driving Restrictions: As prior to admission
Activity Restrictions/Additional Instructions:
-Orthopedic surgery recommends subcutaneous Lovenox for 2 weeks, followed by aspirin 325 mg daily for 3 weeks.
-Follow-up with orthopedic surgery in the office in 2-3 weeks.
-Follow-up with your primary care doctor 1 week after you leave rehab.
Referrals:
José Alberts MD [Active] - in one week
Eneida Stallings MD [Family Provider] - in one week
Prescriptions:
New
sennosides [Senna Laxative] 8.6 mg Tablet
17.2 mg PO BIDPRN PRN (Reason: constipation) Qty: 0 0RF
carvedilol 6.25 mg Tablet
6.25 mg PO BID Qty: 0 0RF
amlodipine 10 mg Tablet
10 mg PO DAILY Qty: 0 0RF
alum-mag hydroxide-simeth [Mag-Al Plus] 200-200-20 mg/5 mL Suspension
30 ml PO Q4HPRN PRN (Reason: INDIGESTION) Qty: 0 0RF
simethicone 80 mg Tablet,Chewable
80 mg PO QIDPRN PRN (Reason: gas) Qty: 30 0RF
oxycodone 5 mg Tablet
5 mg PO Q4HPRN PRN (Reason: moderate pain) Qty: 0 0RF
enoxaparin 40 mg/0.4 mL Syringe
40 mg SC DAILY 14 Days Qty: 0 0RF
acetaminophen 650 mg/20.3 mL Solution
650 mg PO Q4HWA Qty: 0 0RF
Continued
Saline Mist 0.65 % Aerosol,[place]
2 spray intranasal DAILYPRN PRN (Reason: congestion)
cranberry 450 mg Tablet
450 mg PO DAILYPRN PRN (Reason: supplement)
Clear Eyes Complete 0.025-0.2-0.5 % Drops
1 drp BOTH EYES QIDPRN PRN (Reason: itchy eyes)
turmeric 400 mg Capsule
400 mg PO DAILYPRN PRN (Reason: supplement)
Magnesium Complex 300 mg magnesium Tablet
300 mg PO DAILYPRN PRN (Reason: supplement)
Discontinued
diphenhydramine-acetaminophen [Tylenol PM Extra Strength] 25-500 mg Tablet
1 tab PO HS
Discharge Orders:
Discharge Patient (As Directed); Ordered 01/15/24
Ordered By: Luis Antonio Cruz
Discharge Date and Time
Discharge Date/Time: 01/15/24 13:35
Print Language: PAP[place]
--- NOTE | 2024-01-15 11:31 | CM ---
Patient has been accept at [facility] today.
Calder[place]
Report [phone]
[2024-01-15 12:20] VITALS: BP 103/67; PULSE 80; O2SAT 97
[2024-01-15 12:28] VITALS: BP 103/67
== END 2024-01-15 13:35 | DRG 522 ==
LOC: 2 SOUTH 22:50
PROVIDERS: Internal Medicine; Orthopaedic Surgery Hand Surgery; Registered Nurse; ADMITTING PHYSICIAN Internal Medicine; ATTENDING PHYSICIAN Family Medicine; CONSULT PHYSICIAN Orthopaedic Surgery; EMERGENCY PHYSICIAN Emergency Medicine; FAMILY PHYSICIAN Family Medicine; OTHER PHYSICIAN Internal Medicine Cardiovascular Disease
PROC: 0SRR0J9 Replacement of Right Hip Joint, Femoral Surface with Synthetic Substitute, Cemented, Open Approach (ICD-10-PCS; 2024-01-10)
DX: S72.011A Unspecified intracapsular fracture of right femur, initial encounter for closed fracture (principal); D62 Acute posthemorrhagic anemia; I10 Essential (primary) hypertension; E78.00 Pure hypercholesterolemia, unspecified; I16.0 Hypertensive urgency; G89.29 Other chronic pain; Z88.5 Allergy status to narcotic agent; Z88.1 Allergy status to other antibiotic agents; Z88.0 Allergy status to penicillin; Z88.8 Allergy status to other drugs, medicaments and biological substances; W18.39XA Other fall on same level, initial encounter
CPT/HCPCS: 70450; 72192; 73502; 73564; 80048; 80053; 81003; 81015; 83735; 84100; 85025; 85027; 85610; 85730; 86850; 86900; 86901; 87086; 96374; 96376; 97110; 97116; 97163; 97167; 97530; 97535; 99284; C1713; C1776